=== PATIENT | female | born 1955 | race Caucasian/White ===

== ENCOUNTER 2024-08-06 11:45 | Outpatient (CLI) | payer MEDICARE, OTHER, SELFPAY | END 2024-08-06 11:46 | disposition home or self-care (01) | LOC: NFLDREF 08-07 08:47 | PROVIDERS: PCP Nurse Practitioner Family; Referring Provider Nurse Practitioner Family; Visit Provider Nurse Practitioner Family | DX: N39.0 Urinary tract infection, site not specified (principal); B96.89 Other specified bacterial agents as the cause of diseases classified elsewhere | CPT/HCPCS: 81001; 87086; 87186 ==

== ENCOUNTER 2024-08-07 10:50 | Outpatient (CLI) | payer MEDICARE, OTHER, SELFPAY | END 2024-08-07 10:51 | disposition home or self-care (01) | LOC: NFLDREF 08-09 02:36 | PROVIDERS: PCP Nurse Practitioner Family; Referring Provider Nurse Practitioner Family; Visit Provider Nurse Practitioner Family | DX: K21.9 Gastro-esophageal reflux disease without esophagitis (principal) | CPT/HCPCS: 87338 ==

== ENCOUNTER 2024-08-24 07:21 | Outpatient (CLI) | payer MEDICARE, OTHER, SELFPAY ==
--- NOTE | 2024-08-24 08:10 | W.ANESCHARGE ---
Anesthesia Charges Start Date/Time Anesthesia Start Date: 08/24/24 Anesthesia Start Time: 07:49 Stop Date/Time Anesthesia Stop Date: 08/24/24 Anesthesia Stop Time: 08:07
--- NOTE | 2024-08-24 10:04 | W.ANESCHARGE ---
Anesthesia Charges Start Date/Time Anesthesia Start Date: 08/24/24 Anesthesia Start Time: 07:49 Stop Date/Time Anesthesia Stop Date: 08/24/24 Anesthesia Stop Time: 08:07
== END 2024-08-24 07:22 | disposition home or self-care (01) ==
LOC: OP CLINIC 07:23
PROVIDERS: PCP Nurse Practitioner Family; Visit Provider Surgery
DX: K21.9 Gastro-esophageal reflux disease without esophagitis (principal); K44.9 Diaphragmatic hernia without obstruction or gangrene; K31.7 Polyp of stomach and duodenum
CPT/HCPCS: 00731; 43239; 88305; J2704; J3010

== ENCOUNTER 2024-09-11 12:42 | Outpatient (CLI) | payer MEDICARE, OTHER, SELFPAY ==
[2024-09-11 09:29] LABS: Appearance Urine Clear (Clear); Bilirubin Urine Negative (Negative); Blood Urine Negative (Negative); Color Urine Yellow (Yellow); Glucose Urine Negative (Negative); Ketones Urine Negative (Negative); Leukocyte Esterase Urine Trace (Negative); Nitrite Urine Negative (Negative); Protein Urine Negative (Negative); Specific Gravity Urine 1.015 (1.000-1.030); Urobilinogen Urine 0.2 (0.2-1.0)
[2024-09-11 16:06] LABS: RBC Urine 0-2 (0-2); Squamous Epithelial Cell Urine Few (None-Few)
== END 2024-09-11 12:43 | disposition home or self-care (01) ==
PROVIDERS: PCP Nurse Practitioner Family; Visit Provider Nurse Practitioner Family
DX: N39.0 Urinary tract infection, site not specified (principal)
CPT/HCPCS: 81001; 81003; 87086